=== PATIENT | male | born 1955 | race Caucasian/White ===

== ENCOUNTER 2016-11-09 12:57 | Emergency (ER) | payer OTHER ==
[2016-11-09 13:13] VITALS: BMI 30.2
--- NOTE | 2016-11-09 13:59 | PDOC ---
History of Present Illness <Keith Carvajal - Last Filed: 11/09/16 17:14> - General History Source: Patient Exam Limitations: No Limitations - History of Present Illness Initial Comments: 11/09/16 17:23 The patient is a 61-year-old male, with a significant past medical history of high blood pressure, who presents to the emergency department with back pain, lightheadedness, and tingling in both arms. The patient states that his hands are shaking alongside the tingling in his arms. He reports that he has not had this back pain previously. He reports that he has had intermittent lightheadedness for a week. He reports he has been non-compliant with his medications for a week. The patient denies chest pain, palpitations, shortness of breath, headache and dizziness. The patient denies fever, chills, abdominal pain, nausea, vomit, diarrhea and constipation. He denies urinary complaints and leg pain. Allergies: NKDA Past surgical history: 2 stents in heart Social history: Former smoker PMD - Dr. Diogo Cloud <Afshan Singh - Last Filed: 11/09/16 17:25> - General Chief Complaint: Lightheaded Stated Complaint: LOWER BACK PAIN/RT ARM PAIN/TINGLING Past History - Past Medical History Cardiac Disorders: Yes (cad) HTN: Yes Hypercholesterolemia: Yes - Surgical History Cardiac Surgery: Yes (card stent x2) - Psycho/Social/Smoking Cessation Hx Anxiety: No Suicidal Ideation: No Smoking History: Former smoker Have you smoked in the past 12 months: No Information on smoking cessation initiated: No Hx Alcohol Use: No Drug/Substance Use Hx: No Substance Use Type: None <Keith Carvajal - Last Filed: 11/09/16 17:14> <Afshan Singh - Last Filed: 11/09/16 17:25> - Past Medical History Allergies/Adverse Reactions: Allergies Allergy/AdvReac Type Severity Reaction Status Date / Time No Known Allergies Allergy Verified 11/09/16 13:09 Home Medications: Ambulatory Orders Diphenhydramine HCl [Benadryl -] 25 mg PO Q6H #30 capsule 06/19/15 Prednisone [Deltasone -] 40 mg PO DAILY #14 tablet 06/19/15 Ibuprofen [Motrin -] 600 mg PO QID PRN #28 tablet 11/09/16 Meclizine HCl [Antivert -] 25 mg PO QID PRN #120 tablet 11/09/16 Review of Systems - Review of Systems Able to Perform ROS?: Yes Comments:: 11/09/16 17:24 CONSTITUTIONAL: Absent: fever, chills, diaphoresis, generalized weakness, malaise, loss of appetite HEENT: Absent: rhinorrhea, nasal congestion, throat pain, throat swelling, difficulty swallowing, mouth swelling, ear pain, eye pain, visual changes CARDIOVASCULAR: Present: (+) lightheadedness Absent: chest pain, syncope, palpitations, irregular heart rate, peripheral edema RESPIRATORY: Absent: cough, shortness of breath, dyspnea with exertion, orthopnea, wheezing, stridor, hemoptysis GASTROINTESTINAL: Absent: abdominal pain, abdominal distension, nausea, vomiting, diarrhea, constipation, melena, hematochezia GENITOURINARY: Absent: dysuria, frequency, urgency, hesitancy, hematuria, flank pain, genital pain MUSCULOSKELETAL: Present: (+) back pain Absent: arthralgia, joint swelling SKIN: Absent: rash, itching, pallor HEMATOLOGIC/IMMUNOLOGIC: Absent: easy bleeding, easy bruising, lymphadenopathy, frequent infections ENDOCRINE: Absent: unexplained weight gain, unexplained weight loss, heat intolerance, cold intolerance NEUROLOGIC: Present: (+) tingling in bilateral arms Absent: headache, dizziness, unsteady gait, seizure, mental status changes, bladder or bowel incontinence PSYCHIATRIC: Absent: anxiety, depression, suicidal or homicidal ideation, hallucinations. <Afshan Singh - Last Filed: 11/09/16 17:25> *Physical Exam - Vital Signs Last Vital Signs Temp Pulse Resp BP Pulse Ox 97.5 F L 62 18 147/92 100 11/09/16 13:10 11/09/16 13:10 11/09/16 13:10 11/09/16 13:10 11/09/16 13:10 <Keith Carvajal - Last Filed: 11/09/16 17:14> - Vital Signs Last Vital Signs Temp Pulse Resp BP Pulse Ox 97.5 F L 62 18 147/92 100 11/09/16 13:10 11/09/16 13:10 11/09/16 13:10 11/09/16 13:10 11/09/16 14:09 - Physical Exam Comments: 11/09/16 17:25 GENERAL: Well developed, well nourished. Awake and alert and coherent. In no acute distress. HEENT: Normocephalic, atraumatic. PERRLA, EOMI. No nystagmus. No conjunctival pallor. Sclera are non-icteric. Moist mucous membranes. Oropharynx is clear. NECK: Supple. Full ROM. No JVD. Carotid pulses 2+ and symmetric, without bruits. No thyromegaly. No lymphadenopathy. CARDIOVASCULAR: Regular rate and rhythm. No murmurs, rubs, or gallops. Distal pulses are 2+ and symmetric. PULMONARY: No evidence of respiratory distress. Lungs clear to auscultation bilaterally. No wheezing, rales or rhonchi. ABDOMINAL: Soft. Non-tender. Non-distended. No rebound or guarding. No organomegaly. Normoactive bowel sounds. MUSCULOSKELETAL (+) Some lumbosacral midline tenderness. No radiculopathy on exam. Normal range of motion at all joints. No bony deformities or tenderness. No CVA tenderness. EXTREMITIES: No cyanosis. No clubbing. No edema. No calf tenderness. SKIN: Warm and dry. Normal capillary refill. No rashes. No jaundice. NEUROLOGICAL: Alert, awake, appropriate. Cranial nerves 2-12 intact. No deficits to light touch and temperature in face, upper extremities and lower extremities. No motor deficits in the in face, upper extremities and lower extremities. Normoreflexic in the upper and lower extremities. Normal speech. Toes are downgoing bilaterally. Gait is normal without ataxia. PSYCHIATRIC: Cooperative. Good eye contact. Appropriate mood and affect. <Afshan Singh - Last Filed: 11/09/16 17:25> ED Treatment Course - LABORATORY CBC & Chemistry Diagram: 11/09/16 14:30 11/09/16 14:30 <Keith Carvajal - Last Filed: 11/09/16 17:14> - LABORATORY CBC & Chemistry Diagram: 11/09/16 14:30 11/09/16 14:30 - ADDITIONAL ORDERS Additional order review: Laboratory Results 11/09/16 11/09/16 11/09/16 14:30 14:30 14:30 INR 1.28 H PTT (Actin FS) 38.4 H Sodium 142 Potassium 4.2 Chloride 105 Carbon Dioxide 30 Anion Gap 7 L BUN 19 H Creatinine 0.9 Creat Clearance w eGFR > 60 Random Glucose 92 Calcium 9.1 Total Bilirubin 0.6 AST 17 ALT 29 Alkaline Phosphatase 87 Total Protein 7.2 Albumin 3.9 Urine Color Ltyellow Urine Appearance Clear Urine pH 5.0 Ur Specific [place] 1.015 Urine Protein Negative Urine Glucose (UA) Negative Urine Ketones Negative Urine Blood 1+ H Urine Nitrite Negative Urine Bilirubin Negative Urine Urobilinogen Negative Ur Leukocyte Esterase Negative Urine RBC <1 Urine WBC <1 Ur Epithelial Cells Rare Urine Mucus Rare 11/09/16 14:30 RBC 4.97 MCV 92.2 MCHC 33.7 RDW 14.0 MPV 8.1 Neutrophils % 56.2 Lymphocytes % 27.3 Monocytes % 12.1 H Eosinophils % 4.0 Basophils % 0.4 <Afshan Singh - Last Filed: 11/09/16 17:25> Medical Decision Making - Medical Decision Making 11/09/16 17:14 mild dizziness and mild L/S tenderness with a normal neurologic exam. Work up is essentially negative. <Keith Carvajal - Last Filed: 11/09/16 17:14> *DC/Admit/Observation/Transfer - Discharge Dispostion Admit: No <Keith Carvajal - Last Filed: 11/09/16 17:14> - Attestations Scribe Attestion: 11/09/16 17:25 Documentation prepared by Afshan Singh, acting as mobile paramedical examiner for Keith Carvajal MD. <Afshan Singh - Last Filed: 11/09/16 17:25> Diagnosis at time of Disposition: Dizziness, Back pain - Discharge Dispostion Disposition: HOME Condition at time of disposition: Improved - Prescriptions Prescriptions: Meclizine HCl [Antivert -] 25 mg PO QID PRN #120 tablet PRN Reason: Vertigo Ibuprofen [Motrin -] 600 mg PO QID PRN #28 tablet PRN Reason: Pain - Patient Instructions Printed Discharge Instructions: Vertigo, Low Back Pain
[2016-11-09 14:51] LABS: BASOPHIL 0.4 % (0-2.0); MCH 31.1 pg (25.7-33.7); MCHC 33.7 g/dl (32.0-35.9); MEAN CELL VOLUME 92.2 fl (80-96); MEAN PLT VOLUME 8.1 fl (7.5-11.1); NEUTROPHILS 56.2 % (42.8-82.8); PLATELET COUNT 186 K/MM3 (134-434); WHITE BLOOD COUNT 6.9 K/mm3 (4.0-10.0)
[2016-11-09 14:54] LABS: URINE APPEARANCE CLEAR; URINE BILIRUBIN NEGATIVE (NEGATIVE); URINE COLOR LTYELLOW; URINE GLUCOSE (UA) NEGATIVE (NEGATIVE); URINE KETONE NEGATIVE (NEGATIVE); URINE LEUK ESTERASE NEGATIVE (NEGATIVE); URINE NITRITE NEGATIVE (NEGATIVE); URINE PROTEIN NEGATIVE (NEGATIVE); URINE UROBILINOGEN NEGATIVE E.U./dl (0.2-1.0)
[2016-11-09 14:55] LABS: URINE BLOOD 1+ (NEGATIVE)
[2016-11-09 14:56] LABS: URINE MUCUS RARE; URINE RBC <1 /hpf (0-3); URINE WBC <1 /hpf (3-5)
[2016-11-09 15:14] LABS: ALBUMIN 3.9 g/dl (3.4-5.0); ALK PHOS 87 U/L (45-117); ANION GAP 7 (8-16); BILIRUBIN,TOTAL 0.6 mg/dL (0.2-1.0); CALCIUM 9.1 mg/dL (8.5-10.1); CO2 30 mmol/L (21-32); CREATININE 0.9 mg/dL (0.7-1.3); GLUCOSE,RANDOM 92 mg/dL (74-106); SGOT/AST 17 U/L (15-37); SGPT/ALT 29 U/L (12-78); TOT PROT 7.2 g/dl (6.4-8.2)
[2016-11-09 15:26] LABS: INR 1.28 (0.82-1.09); PROTHROMBIN TIME (PATIENT) 14.1 SEC (9.98-11.88)
[2016-11-09 15:29] LABS: ACTIVATED PTT 38.4 SECONDS (26.9-34.4)
[2016-11-09 17:29] VITALS: BP 124/70; PULSE 87; TEMP 98.3
== END 2016-11-09 17:29 | disposition home or self-care (01) ==
LOC: JER 12:57
DX: R42 Dizziness and giddiness (principal); M54.5 Low back pain; Z95.5 Presence of coronary angioplasty implant and graft; I10 Essential (primary) hypertension; E78.00 Pure hypercholesterolemia, unspecified
CPT/HCPCS: 36415; 70450-TC; 72100-TC; 76775-TC; 80053; 81003; 81015; 85025; 85610; 85730; 99283-25

== ENCOUNTER → 2017-11-28 | Emergency (ER) | payer OTHER ==
[~2017-11-28] MED LIST: CYCLOBENZAPRINE HCL 10 MG TABLET (FP) ONE; CYCLOBENZAPRINE HCL 10 MG TABLET (FP) PO ONE; KETOROLAC TROMETHAMINE 30 MG/1 ML VIAL IM ONE; KETOROLAC TROMETHAMINE 30 MG/1 ML VIAL ONE
--- NOTE | 2017-11-28 21:39 | PDOC ---
Rapid Medical Evaluation Time Seen by Provider: 11/28/17 21:37 Medical Evaluation: Allergies Allergy/AdvReac Type Severity Reaction Status Date / Time No Known Allergies Allergy Verified 11/09/16 13:09 11/28/17 21:38 62 year old male with a history of HTN, HLD presenting with left shoulder pain and decreased mobility after his 21 year old son lifted up his arm while playing. -Xray -Main ED for further evaluation Discharge Disposition - Referrals Referrals: Diogo Cloud MD [Primary Care Provider] - - Patient Instructions - Post Discharge Activity
[2017-11-28 21:41] VITALS: BP 146/98; PULSE 94; TEMP 97.9; BMI 34.9
--- NOTE | 2017-11-28 23:04 | PDOC ---
History of Present Illness - General History Source: Patient Exam Limitations: No Limitations - History of Present Illness Initial Comments: 11/28/17 23:09 The patient is a 62 year old male, with a significant past medical history of hypertension, who presents to the emergency department with, left shoulder pain s/p playing with his son (21 years old). The patient reports that earlier today his son lifted his left arm up while playing and he experienced a sharp pain in the left shoulder. The patient reports the left shoulder pain is worse with movement. He denies recent falls, head injury or loss of consciousness. He denies recent numbness, tingling or loss of sensation. He denies any recent fevers, chills, headache or dizziness. He denies any recent nausea, vomit, diarrhea or constipation. He denies any recent chest pain or shortness of breath. Allergies: NKA Past surgical history: None reported. Social History: Nonsmoker. Denies EtOH use and recreational drug use. Primary Care Physician: Dr. Diogo Cloud <Bridger Rodas - Last Filed: 11/28/17 23:23> - General History Source: Patient Exam Limitations: No Limitations <Ford Zeng - Last Filed: 11/28/17 23:41> - General Chief Complaint: Shoulder Dislocation Stated Complaint: SHOULDER/ARM PAIN Time Seen by Provider: 11/28/17 21:37 Past History <Bridger Rodas - Last Filed: 11/28/17 23:23> - Past Medical History Cardiac Disorders: Yes (cad) COPD: No HTN: Yes Hypercholesterolemia: Yes - Surgical History Cardiac Surgery: Yes (card stent x2) - Suicide/Smoking/Psychosocial Hx Smoking History: Never smoked Have you smoked in the past 12 months: No Information on smoking cessation initiated: No Hx Alcohol Use: No Drug/Substance Use Hx: No Substance Use Type: None <Ford Zeng - Last Filed: 11/28/17 23:41> - Past Medical History Allergies/Adverse Reactions: Allergies Allergy/AdvReac Type Severity Reaction Status Date / Time No Known Allergies Allergy Verified 11/28/17 21:41 Home Medications: Ambulatory Orders Aspirin 81 mg PO DAILY 11/28/17 Atorvastatin Ca [Lipitor] 40 mg PO HS 11/28/17 Review of Systems - Review of Systems Comments:: 11/28/17 23:09 GENERAL/CONSTITUTIONAL: No fever or chills. No weakness. HEAD, EYES, EARS, NOSE AND THROAT: No change in vision. No ear pain or discharge. No sore throat. CARDIOVASCULAR: No chest pain or shortness of breath. RESPIRATORY: No cough, wheezing, or hemoptysis. GASTROINTESTINAL: No nausea, vomiting, diarrhea or constipation. GENITOURINARY: No dysuria, frequency, or change in urination. MUSCULOSKELETAL: +Left shoulder pain. No neck or back pain. SKIN: No rash NEUROLOGIC: No headache, vertigo, loss of consciousness, or change in strength/ sensation. ENDOCRINE: No increased thirst. No abnormal weight change. HEMATOLOGIC/LYMPHATIC: No anemia, easy bleeding, or history of blood clots. ALLERGIC/IMMUNOLOGIC: No hives or skin allergy. <Bridger Rodas - Last Filed: 11/28/17 23:23> *Physical Exam - Vital Signs Last Vital Signs Temp Pulse Resp BP Pulse Ox 97.9 F 94 H 18 146/98 98 11/28/17 21:38 11/28/17 21:38 11/28/17 21:38 11/28/17 21:38 11/28/17 21:38 - Physical Exam Comments: 11/28/17 23:15 GENERAL: Awake, alert, and fully oriented. HEAD: No signs of trauma EYES: PERRLA, EOMI, sclera anicteric, conjunctiva clear ENT: Auricles normal inspection, hearing grossly normal, nares patent, oropharynx clear without exudates. Moist mucosa NECK: Normal ROM, supple, no lymphadenopathy, JVD, or masses LUNGS: Breath sounds equal, clear to auscultation bilaterally. No wheezes, and no crackles HEART: Regular rate and rhythm, normal S1 and S2, no murmurs, rubs or gallops ABDOMEN: Soft, nontender, normoactive bowel sounds. No guarding, no rebound. No masses EXTREMITIES: +Muscle spasm appreciated left shoulder and trapezius. Patient has full passive range of motion left shoulder but pain on active movements. 2+ radial pulses. Sensation intact over the median radial, ulnar and deltoid nerve. No tenderness to wrist or elbow. No gross abnormalities NEUROLOGICAL: Cranial nerves II through XII grossly intact. Normal speech, normal gait SKIN: Warm, Dry, normal turgor, no rashes or lesions noted. <Bridger Rodas - Last Filed: 11/28/17 23:23> - Vital Signs Last Vital Signs Temp Pulse Resp BP Pulse Ox 97.9 F 94 H 18 146/98 98 11/28/17 21:38 11/28/17 21:38 11/28/17 21:38 11/28/17 21:38 11/28/17 21:38 <Ford Zeng - Last Filed: 11/28/17 23:41> ED Treatment Course - RADIOLOGY Radiograph Interpretation: 11/28/17 23:24 EXAM#: TYPE/EXAM: RESULT: [id number] RAD/SHOULDER-LEFT Exam: Left shoulder x-ray-2 views. Indication: Pain. Technique: Internal rotation and transscapular Y views of the left shoulder. Comparison: None available. Findings: Evaluation is somewhat limited without an external rotation view. No definite acute fracture in the left shoulder. Alignment is anatomic. There is glenohumeral and acromioclavicular arthropathy. Geographic area of lucency in the humeral head may be related to rotator cuff tendinopathy. Osseous mineralization is within normal. The overlying soft tissues are unremarkable. Impression: Anatomic alignment in the left shoulder with no definite acute fracture. Reported By: Gi Garcia DO <Bridger Rodas - Last Filed: 11/28/17 23:23> Medical Decision Making - Medical Decision Making 11/28/17 23:00 A portion of this note was documented by scribe services under my direction. I have reviewed the details of the note, within reason, and agree with the documentation with the following case summary and management plan written by me. Patient treated in the ED. Nursing notes are reviewed and incorporated into the medical decision-making. Vital signs reviewed. Vital Signs Temp Pulse Resp BP Pulse Ox 97.9 F 94 H 18 146/98 98 11/28/17 21:38 11/28/17 21:38 11/28/17 21:38 11/28/17 21:38 11/28/17 21:38 62-year-old male with past medical history of hypertension presents to the emergency department for left shoulder pain. The patient was playing around with his 21-year-old son when the patient's son had picked the patient up. He felt like his left shoulder dislocated and then relocated. Since then, he isn't reporting pain. Denies any numbness or weakness. Patient is neurovascular intact. X-ray was obtained. Left shoulder x-ray demonstrates potential rotator cuff tendinopathy. There is also anatomic alignment and left shoulder but no definitive acute fracture. It is very possible that the patient did dislocate his left shoulder and relocated spontaneously. There is some potential evidence of tendinopathy of his left shoulder. Patient was given the results of the x-ray. Patient was placed in a sling. I also suspect the patient is expressing a degree of muscle spasm as well. We'll give NSAIDs and muscle relaxants. The patient's pain is improved, we'll discharge with follow-up with orthopedics. 11/28/17 23:39 When the nurse had attempted to give the patient medications, we were unable to find the patient. After looking for approximately 30 minutes, he had eloped. <Ford Zeng - Last Filed: 11/28/17 23:41> *DC/Admit/Observation/Transfer - Attestations Scribe Attestion: 11/28/17 23:18 Documentation prepared by Bridger Rodas, acting as biomedical electronics technician for Ford Zeng MD. <Bridger Rodas - Last Filed: 11/28/17 23:23> - Discharge Dispostion Admit: No <Ford Zeng - Last Filed: 11/28/17 23:41> Diagnosis at time of Disposition: Shoulder pain, left Qualifiers: Chronicity: acute Qualified Code(s): M25.512 - Pain in left shoulder - Discharge Dispostion Disposition: ELOPED Condition at time of disposition: Stable - Referrals Referrals: Diogo Cloud MD [Primary Care Provider] - - Patient Instructions Printed Discharge Instructions: DI for Shoulder Pain Additional Instructions: The radiograph is negative for fracture. Please follow up with an orthopedist. You may have some tendinitis of your left shoulder. Use the sling as needed for symptom control (but do not wear it all the time, as this will cause frozen shoulder and wosrening pain. Please call to make an appointment. - Post Discharge Activity
== END | disposition home or self-care (01) ==
LOC: JER 21:15
DX: M75.101 Unspecified rotator cuff tear or rupture of right shoulder, not specified as traumatic (principal); X50.9XXA Other and unspecified overexertion or strenuous movements or postures, initial encounter; Y93.83 Activity, rough housing and horseplay; Y92.89 Other specified places as the place of occurrence of the external cause; Y99.8 Other external cause status
CPT/HCPCS: 73030-TC-LT; 99281-25